=== PATIENT | female | born 1945 | race Caucasian/White ===

== ENCOUNTER → 2016-12-13 | Outpatient (CLI) | payer MEDICARE ==
[~2016-12-13] MED LIST: LIDOCAINE 2% (XYLOCAINE) 20 ML VIAL INJ ONE; MIDAZOLAM 2 MG/2 ML (VERSED) VIAL ONE; ROPIVACAINE 1% 10 MG/ML (NAROPIN) 20 ML AMPUL ONE; SODIUM CHLORIDE FLUSH 3 ML SYR ONE
--- NOTE | 2016-12-14 10:35 | PAIN MANAGEMENT ---
Date of note: 12/13/2016 Procedure: Right stellate ganglion block This is a 71-year-old patient of JESSICA Vega and Dr. Viktor Auguste in [place], [place]. The patient presents after a fracture of her wrist approximately a month and a half ago and subsequent repair with pain in the right wrist. She has swelling throughout the hand. She has hyperhidrosis. The skin is shiny, the hair follicles are bristly. She does not have any alternations at this point of the nail beds. She has mottled skin color and has a demarcation to approximately the lower third of her forearm on that side. Range of motion is minimal. She is having pain, but not throughout the entire hand, but more regionally in the wrist area. The diagnosis of complex regional pain syndrome type 1 has been made and I have been asked to provide a sympathetic block. I explained to the patient that I would like to a right stellate ganglion block for her. The risks and benefits were explained and the patient was given informed consent. She was placed in supine position with a pillow under her shoulders, her neck and back. The 6th transverse process on the right side was identified, as was the carotid artery. The area was localized with ropivacaine 0.5%, 1 mL with a 27-gauge 1-1/2 inch needle after Betadine prep. A 21-gauge, 2 inch needle was then employed into the area with the transverse process of the 6th vertebra as my backstop. Once this was impacted, it was withdrawn. The patient also did notice paresthesia into that arm, it was very slight. Aspiration occurred without return of cerebral spinal fluid or heme. A slight test dose of 0.25 mL of ropivacaine 0.5% with lidocaine 1% was injected. The patient tolerated that well and then using intermittent injection bolus a total of 8 mL was injected. The patient tolerated the procedure well. Over the next 30 minutes she developed Dileep's syndrome as expected and also noticed that the coloration of her hand began to normalize, as did the vascular tone. Also started to notice the hand became warmer and was less painful. I have asked her to call me in 3 days and I will follow her progress from there.
== END ==
LOC: PMC 13:45
PROVIDERS: ATTEND Physician Assistant
DX: G90.511 Complex regional pain syndrome I of right upper limb (principal)
CPT/HCPCS: 64510; J2001; J2250; J2795

== ENCOUNTER → 2016-12-20 | Outpatient (CLI) | payer MEDICARE ==
[~2016-12-20] MED LIST changes: -MIDAZOLAM 2 MG/2 ML (VERSED) VIAL ONE; +ROPIVACAINE 1% 10 MG/ML (NAROPIN) 10 ML AMPUL ONE; -SODIUM CHLORIDE FLUSH 3 ML SYR ONE
--- NOTE | 2016-12-20 11:24 | PAIN MANAGEMENT ---
Date of note: 12/20/2016 Procedure: Right axillary block This is a 71-year-old patient of Dr. Viktor Auguste. The patient presents with complex regional pain syndrome type 1 in the right hand after trauma. She had a stellate ganglion block by me approximately 1 week ago and has done quite well. She has had some relief of swelling and little more normalization of the colorization of her hand. She still has very minimal range of motion, but this is as much a problem with the swelling and the need for continuation of her occupational therapy needs for range of motion. Today we decided to provide another block and I explained a right axillary block to her satisfaction. She was placed in the supine position. The area was prepped, the artery was identified and using a 27-gauge 1-1/2 inch needle the neurovascular bundle was injected with paresthesia for the radial, brachial, and medial injections. A total of 15 mL of ropivacaine 0.5% and Xylocaine 1% was injected. There was no lasting paresthesia during the injection and there was no heme elicited at any time. This area was then massaged afterwards and after approximately 20 minutes, the block was starting to set up nicely. She was placed in a sling and vitals checked throughout. She was then released after approximately 45 minutes and is to call me in 3 days and I will follow her progress from there.
--- NOTE | 2017-01-01 14:23 | Progress Note (E) ---
Progress Note I examined Jess today. decreased swelling, hair is softer and vasculature is more prominent then one week ago. Encouraged her to work hard and often with ROM. She is to call me in one week. Elvin Hendrickson CRNA January 01, 2017 14:23
== END ==
LOC: PMC 08:46
PROVIDERS: ATTEND Orthopaedic Surgery
DX: G90.511 Complex regional pain syndrome I of right upper limb (principal)
CPT/HCPCS: 64417; J2001; J2795